=== PATIENT | female | born 1980 | race Two or more races ===

== ENCOUNTER 2018-05-24 13:43 | Emergency (ER) | payer OTHER ==
[~2018-05-24] VITALS: Ht 162.6 cm; Wt 84.4 kg
[2018-05-24] MEDS ORDERED: PRENATABS RX T1 EACH (14:44)
== END 2018-05-24 21:09 | disposition home or self-care (01) ==
LOC: ER 13:43
DX: O20.0 Threatened abortion (principal)

== ENCOUNTER 2018-08-20 10:33 | Outpatient (CLI) | payer OTHER ==
[~2018-08-20 10:33] MED LIST: PRENATABS RX T1 EACH
== END 2018-08-20 12:57 | disposition home or self-care (01) ==
LOC: NST 10:33
DX: Z34.82 Encounter for supervision of other normal pregnancy, second trimester (principal)

== ENCOUNTER 2018-09-23 15:42 | Outpatient (CLI) | payer OTHER | END 2018-09-23 16:12 | disposition home or self-care (01) | LOC: NST 15:42 | DX: Z34.83 Encounter for supervision of other normal pregnancy, third trimester (principal) ==

== ENCOUNTER 2018-10-26 11:37 | Inpatient (IN) | payer OTHER ==
[~2018-10-26] VITALS: Ht 162.6 cm; Wt 3.2 kg
== END 2018-11-16 11:14 | disposition home or self-care (01) | DRG 785 ==
LOC: LDR 11-13 12:44 → O/R 11-13 18:14 → OB/GYN 11-13 18:25
PROVIDERS: ADMIT Obstetrics & Gynecology
PROC: 0UL70ZZ Occlusion of Bilateral Fallopian Tubes, Open Approach (ICD-10-PCS; 2018-11-13)
PROC: 4A1HXCZ Monitoring of Products of Conception, Cardiac Rate, External Approach (ICD-10-PCS; 2018-11-13)
PROC: 10D00Z1 Extraction of Products of Conception, Low, Open Approach (ICD-10-PCS; principal; 2018-11-13 14:30)
DX: O82 Encounter for cesarean delivery without indication (principal); Z3A.38 38 weeks gestation of pregnancy; Z37.0 Single live birth; Z30.2 Encounter for sterilization

== ENCOUNTER 2024-02-09 05:15 | Day surgery (SDC) | payer OTHER ==
[2024-02-04 10:20] VITALS: BP 128/85
[2024-02-04 10:48] LABS: HEMATOCRIT 40.6 % (36.0-45.00); HEMOGLOBIN 13.7 g/dL (12.0-15.00); MEAN CELL VOLUME 85.6 fL (80.00-100.00); MEAN CORPUSCULAR HGB CONC 33.8 g/dl (32.0-36.0); PLATELET COUNT 295 K/uL (150-450); RED BLOOD COUNT 4.74 M/uL (4.00-6.00); RED CELL DISTRIBUTION WIDTH 13.7 % (11.5-14.5)
[2024-02-04 11:09] LABS: INR 1.05; PARTIAL THROMBOPLASTIN TIME 30.3 SECONDS (22.0-34.0); PROTHROMBIN TIME 11.4 SECONDS (9.0-11.5)
[2024-02-04 11:39] LABS: ALBUMIN 4.1 gm/dL (3.4-5.0); BILIRUBIN TOTAL 0.53 mg/dL (0.3-1.2); CALCIUM 10.5 mg/dL (8.5-10.1); CREATININE SERUM 0.71 mg/dL (0.55-1.02); GFR 89.43; GLOBULINA 3.9 G/DL (2.4-3.5); POTASSIUM 4.16 mEq/L (3.5-5.1)
[2024-02-04 12:17] LABS: PH,URINE 6.5; URINE BILIRRUBIN NEGATIVE (NEGATIVE); URINE BLOOD TRACE; URINE GLUCOSE NEGATIVE (NEGATIVE); URINE KETONE NEGATIVE (NEGATIVE); URINE LEUKOCYTE NEGATIVE; URINE NITRATE NEGATIVE; URINE PROTEIN NEGATIVE (NEGATIVE); URINE UROBILINOGEN 0.2 E.U./dl
[2024-02-04 12:38] LABS: URINE APPEARANCE CLEAR; URINE COLOR YELLOW
[2024-02-04 12:39] LABS: URINE BACTERIA MANY; URINE CRYSTALS FEW /HPF; URINE MUCUS HEAVY
[~2024-02-09] VITALS: Ht 162.6 cm; Wt 88.9 kg
[2024-02-09] MEDS ORDERED: LIDOCAINE HCL 1%/EPINEPHRINE 20ML VIAL IJ ONE (11:30)
[2024-02-09] MEDS ORDERED: OXYMETAZOLINE HCL 15 ML NASAL DROPS NASAL ONE (11:30)
== END 2024-02-09 14:30 | disposition home or self-care (01) ==
LOC: CIR.AMB 05:15
PROVIDERS: ATTEND Otolaryngology
DX: C01 Malignant neoplasm of base of tongue (principal); D37.02 Neoplasm of uncertain behavior of tongue